=== PATIENT | female | born 1955 | race Hispanic/Latino ===

== ENCOUNTER 2017-10-10 14:55 | Emergency (ER) | payer MEDICAID ==
[2017-10-10 15:59] LABS: Basophils % (Auto) 0.8 % (0.0-1.8); Eosinophils # (Auto) 0.1 K/mm3 (0.0-0.4); Eosinophils % (Auto) 2.1 % (0.0-4.3); Hematocrit 35.6 % (30.3-42.9); Hemoglobin 11.9 gm/dl (10.1-14.3); Lymphocytes # (Auto) 1.2 K/mm3 (1.2-5.4); Mean Corpuscular HGB Conc 33 % (30-34); Mean Corpuscular Hemoglobin 30 pg (28-32); Mean Corpuscular Volume 91 fl (79-97); Monocytes # (Auto) 0.3 K/mm3 (0.0-0.8); Platelet Count 159 K/mm3 (140-440); Red Blood Count 3.93 M/mm3 (3.65-5.03); Red Cell Distribution Width 16.2 % (13.2-15.2)
[2017-10-10 16:17] LABS: Calcium 8.4 mg/dL (8.4-10.2)
[2017-10-10 20:12] LABS: Bilirubin,Urine NEG (Negative); Blood,Urine NEG (Negative); Color,Urine Straw (Yellow); Mucus,Urine FEW /HPF; Nitrite,Urine NEG (Negative); Protein,Urine >500 mg/dL (Negative); Urobilinogen,Urine < 2.0 mg/dL (<2.0)
[2017-10-10 20:13] LABS: Amphetamine Screen,Urine PRESUMPTIVE NEGATIVE; Benzodiazepines Screen,Urine PRESUMPTIVE NEGATIVE; Cannabinoid Screen,Urine PRESUMPTIVE NEGATIVE; Cocaine Screen,Urine PRESUMPTIVE NEGATIVE; Methadone Screen,Urine PRESUMPTIVE NEGATIVE; Opiate Screen,Urine PRESUMPTIVE NEGATIVE
[2017-10-10] MEDS ORDERED: GEODON IM ONE (20:40)
--- NOTE | 2017-10-10 23:47 | Emergency Department Report ---
ED Psych HPI - General Chief Complaint: Psych Stated Complaint: PSYCH Time Seen by Provider: 10/10/17 20:20 Source: patient, family Mode of arrival: Ambulatory - History of Present Illness Initial Comments: Patient was was angry that she was being picked up by somebody called [place].. Family members wanted her to come to have her medications evaluated and put back on her psych medications. However the patient denies feeling suicidal. She denies feeling homicidal. She said several years ago she had an attempted suicide. However has no suicidal ideations or homicidal ideation. She denies any auditory or visual hallucinations. She does have a speech impediment. - Related Data Home Medications Medication Instructions Recorded Confirmed Last Taken Aspirin EC 81 mg PO DAILY 10/10/17 10/10/17 Unknown Atorvastatin 40 mg PO DAILY 10/10/17 10/10/17 Unknown Benztropine 1 mg PO BID 10/10/17 10/10/17 Unknown Divalproex Sodium 500 mg PO HS 10/10/17 10/10/17 Unknown Levothyroxine 25 mcg PO DAILY 10/10/17 10/10/17 Unknown OXcarbazepine 150 mg PO TID 10/10/17 10/10/17 Unknown Proventil Hfa 90 mcg INHALATION TID 10/10/17 10/10/17 Unknown RisperiDONE 4 mg PO BID 10/10/17 10/10/17 Unknown Ziprasidone 80 mg PO HS 10/10/17 10/10/17 Unknown amLODIPine 10 mg PO DAILY 10/10/17 10/10/17 Unknown Allergies Allergy/AdvReac Type Severity Reaction Status Date / Time fluphenazine enanthate Allergy Unknown Verified 06/08/16 16:19 [From Prolixin] fluphenazine HCl Allergy Unknown Verified 06/08/16 16:19 [From Prolixin] ED Review of Systems ROS: Stated complaint: PSYCH Other details as noted in HPI Comment: All other systems reviewed and negative ED Past Medical Hx - Past Medical History Previous Medical History?: Yes Hx Hypertension: Yes Hx Diabetes: Yes Hx Psychiatric Treatment: Yes (bipolar, schizophrenia) Hx COPD: Yes Additional medical history: Violent outburst - Surgical History Past Surgical History?: Yes Additional Surgical History: Hernia operation - Social History Smoking Status: Current Every Day Smoker Substance Use Type: Prescribed - Medications Home Medications: Home Medications Medication Instructions Recorded Confirmed Last Taken Type Aspirin EC 81 mg PO DAILY 10/10/17 10/10/17 Unknown History Atorvastatin 40 mg PO DAILY 10/10/17 10/10/17 Unknown History Benztropine 1 mg PO BID 10/10/17 10/10/17 Unknown History Divalproex Sodium 500 mg PO HS 10/10/17 10/10/17 Unknown History Levothyroxine 25 mcg PO DAILY 10/10/17 10/10/17 Unknown History OXcarbazepine 150 mg PO TID 10/10/17 10/10/17 Unknown History Proventil Hfa 90 mcg INHALATION TID 10/10/17 10/10/17 Unknown History RisperiDONE 4 mg PO BID 10/10/17 10/10/17 Unknown History Ziprasidone 80 mg PO HS 10/10/17 10/10/17 Unknown History amLODIPine 10 mg PO DAILY 10/10/17 10/10/17 Unknown History ED Physical Exam - General Limitations: Other General appearance: alert, in no apparent distress - Head Head exam: Present: atraumatic, normocephalic - Eye Eye exam: Present: normal appearance. Absent: conjunctival injection - ENT ENT exam: Present: mucous membranes moist - Neck Neck exam: Present: normal inspection. Absent: tenderness - Respiratory Respiratory exam: Present: normal lung sounds bilaterally. Absent: respiratory distress - Cardiovascular Cardiovascular Exam: Present: regular rate, normal rhythm. Absent: systolic murmur, diastolic murmur, rubs, gallop - GI/Abdominal GI/Abdominal exam: Present: soft, normal bowel sounds - Rectal Rectal exam: Present: deferred - Extremities Exam Extremities exam: Present: normal inspection. Absent: full ROM - Back Exam Back exam: Present: normal inspection - Neurological Exam Neurological exam: Present: alert, oriented X3 - Psychiatric Psychiatric exam: Present: normal affect, normal mood - Skin Skin exam: Present: warm, dry, intact, normal color. Absent: rash ED Course Vital Signs 10/10/17 10/10/17 10/11/17 15:23 18:06 04:42 Temperature 97.5 F L 97.9 F 97.4 F L Pulse Rate 82 102 H 72 Respiratory 16 18 18 Rate Blood Pressure 158/74 Blood Pressure 146/73 96/71 [Left] O2 Sat by Pulse 95 96 97 Oximetry 10/11/17 10/11/17 10/11/17 08:00 13:39 22:00 Temperature 97.6 F 100.1 F H Pulse Rate 89 73 Respiratory 16 18 18 Rate Blood Pressure Blood Pressure 122/60 149/70 [Left] O2 Sat by Pulse 96 96 98 Oximetry - Reevaluation(s) Reevaluation #1: 10/10/17 23:55 Patient has an elevated potassium level and she is not able to give me any history of prior kidney problems. Creatinine is also elevated at this time. 10/11/17 02:01 After 2 L of normal saline and I will repeat the patient's BMP level. He will need social workers to see the patient in the morning as attempts to contact the family was futile. The patient was seen earlier by Radha the mental health worker and she does not think the patient needs inpatient psychiatric admission and thinks the patient can be discharged. I have signed are out to Dr Beavers 10/12/17 01:30 Hyperkalemia is corrected at this time after the Kayexalate . Patient does have a history of prior renal impairment according to her ED Medical Decision Making - Lab Data Result diagrams: 10/10/17 15:42 10/11/17 04:03 Critical care attestation.: If time is entered above; I have spent that time in minutes in the direct care of this critically ill patient, excluding procedure time. ED Disposition Clinical Impression: Adjustment disorder, Hyperkalemia Disposition: -01 TO HOME OR SELFCARE Is pt being admited?: No Does the pt Need Aspirin: No Condition: Stable Referrals: PRIMARY CARE, [Primary Care Provider] - 3-5 Days
[2017-10-10] MEDS ORDERED: KIONEX PO ONE (23:56)
[2017-10-10] MEDS ORDERED: NACL 0.9% 1000 ML 1,000 ML IV ONE (23:56)
[2017-10-11] MEDS ORDERED: NACL 0.9% 1000 ML 1,000 ML IV ONE (02:03)
[2017-10-11 04:34] LABS: Calcium 7.6 mg/dL (8.4-10.2)
[2017-10-12 12:32] VITALS: BP 141/96
== END 2017-10-12 13:17 | disposition home or self-care (01) ==
LOC: ED 14:55 → EEVIPCON 14:55 → ED 10-12 13:17
DX: E87.5 Hyperkalemia (principal); Z79.82 Long term (current) use of aspirin; I10 Essential (primary) hypertension; E11.9 Type 2 diabetes mellitus without complications; F20.9 Schizophrenia, unspecified; F31.9 Bipolar disorder, unspecified; F17.200 Nicotine dependence, unspecified, uncomplicated; Z88.8 Allergy status to other drugs, medicaments and biological substances; F43.20 Adjustment disorder, unspecified
CPT/HCPCS: 36415; 80048; 80307; 81001; 85025; 96360; 96361; 99284; G0480; J3486; J7030; 80320